=== PATIENT | female | born 2000 | race African-American/Black ===

== ENCOUNTER → 2024-12-04 | Outpatient (REF) | payer BC ==
[~2024-12-04] MED LIST: ACETAMINOPHEN/CODEINE 300MG - 30MG TAB ONE; LIDOCAINE HCL 1% 30ML-PF VIAL ONE
[2024-12-04 12:41] LABS: APPEARANCE,CSF CLEAR (CLEAR); COLOR,CSF COLORLESS (COLORLESS); RED BLOOD CELL,CSF 0 cells/uL (0-10); TUBE NUMBER 3; WHITE BLOOD CELL,CSF 3 cells/uL (0-5)
== END ==
LOC: DX 09:37
PROVIDERS: ATTEND Optometrist
DX: H47.10 Unspecified papilledema (principal); J32.0 Chronic maxillary sinusitis; R51.9 Headache, unspecified
CPT/HCPCS: 36415; 62328; 81025; 82945; 86592; 87070; 87205; 89051; J2003

== ENCOUNTER → 2024-12-09 | Outpatient (REF) | payer BC ==
[~2024-12-09] MED LIST changes: +IOPAMIDOL 300 MG/ML 15ML VIAL IT ONE; +IOPAMIDOL IT ONE; -LIDOCAINE HCL 1% 30ML-PF VIAL ONE
[2024-12-09 11:52] LABS: BASOPHILS % 0.3 % (0.0-1.0); EOSINOPHILS # (AUTO) 0.3 (0.0-0.4); EOSINOPHILS % 2.9 % (0.0-6.0); HEMATOCRIT 30.6 % (34.2-44.1); HEMOGLOBIN 8.8 g/dL (12.0-16.0); LYMPHOCYTES # (AUTO) 2.5 (1.0-3.2); MEAN CORPUSCULAR HEMOGLOBIN 19.8 pg (28-32); MEAN CORPUSCULAR HGB CONC 28.8 g/dL (31-35); MEAN CORPUSCULAR VOLUME 68.8 fL (81-99); MONOCYTES # (AUTO) 0.6 (0.2-0.8); NEUTROPHILS # (AUTO) 5.9 (2.1-6.9); NEUTROPHILS % 63.6 % (38.7-80.0); PLATELET COUNT 392 x10e3/uL (140-360); RED BLOOD COUNT 4.45 x10e6/uL (3.6-5.1); RED CELL DISTRIBUTION WIDTH 19.7 % (11.7-14.4); WHITE BLOOD COUNT 9.22 x10e3/uL (4.8-10.8)
[2024-12-09 12:11] LABS: INR 0.99; PARTIAL THROMBOPLASTIN TIME 32.7 seconds (23.8-35.5); PROTHROMBIN TIME 13.7 seconds (11.9-14.5)
== END ==
LOC: DX 11:13
PROVIDERS: ATTEND Radiology Diagnostic Radiology
DX: G97.1 Other reaction to spinal and lumbar puncture (principal)
CPT/HCPCS: 36415; 62273; 81025; 85025; 85610; 85730; Q9967